=== PATIENT | male | born 1985 | race Caucasian/White ===

== ENCOUNTER 2019-07-28 15:49 | Emergency (ER) | payer SELFPAY ==
[2019-07-28] MEDS ORDERED: cefTRIAXone\\ROCEPHIN 1 GM VIAL ONE (16:31)
== END 2019-07-28 17:05 | disposition home or self-care (01) ==
LOC: MADERS 15:49
DX: S61.251A Open bite of left index finger without damage to nail, initial encounter (principal); S61.231A Puncture wound without foreign body of left index finger without damage to nail, initial encounter; W55.01XA Bitten by cat, initial encounter
CPT/HCPCS: 96372; 99283; J0696

== ENCOUNTER 2025-07-14 11:29 | Emergency (ER) | payer SELFPAY ==
[2025-07-14] MEDS ORDERED: Cephalexin 500 MG CAP ONE (13:32)
== END 2025-07-14 13:35 | disposition home or self-care (01) ==
LOC: MADERS 11:29
DX: H60.12 Cellulitis of left external ear (principal); F17.210 Nicotine dependence, cigarettes, uncomplicated
CPT/HCPCS: 99282

== ENCOUNTER 2025-08-23 10:44 | Outpatient (CLI) | payer OTHER ==
[2025-08-23 12:08] LABS: Cocaine Metabolite Screen Negative (Negative); THC/Cannabinoid Screen Negative (Negative); Tricyclic Screen Negative (Negative)
== END 2025-08-23 10:45 | disposition home or self-care (01) ==
LOC: MADLAB 10:44
PROVIDERS: ATTEND Registered Nurse
DX: Z00.00 Encounter for general adult medical examination without abnormal findings (principal)
CPT/HCPCS: 80306